=== PATIENT | female | born 1955 | race Caucasian/White ===

== ENCOUNTER 2023-04-14 13:09 | Outpatient (RCR) | payer MEDICARE, SELFPAY ==
--- NOTE | 2023-04-14 14:14 | PTOPEVAL1 ---
Assessment and note entered by Danny Carrillo Evaluation Information Assessment Status Evaluation Diagnosis right shoulder pain, right elbow pain Onset 02/25/23 Subjective Information Pt. reports that she fell on 02/25/23 after getting out of bed. She reports that her blood pressure bottomed out which caused her fall. She reports that her nephew helped her up. She reports that she did not immediately go to the hospital. She states that she has pain in the front of the right shoulder and down into the elbow. She notices that the elbow and shoulder get warm and painful. She reports that the pain in her shoulder makes it hard to get comfortable. She states that before falling on the right arm she could use the arm and reach overhead without complication. She reports that she cannot reach overhead currently. 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 She reports that she could never straighten the right elbow before her fall, but pain was not present. She states that she lives alone and was caring for herself with the exception of meal prep and getting into the shower. She has not been able to do her cleaning because of pain in the right arm. She is right hand dominant. She reports that she can compensate with the left arm. She states that combing her hair is difficult due to pain. She did have xray and doctor told her that her rotator cuff is not present. She reports that her goal is to decrease her right arm pain and be able to reach overhead again. Reported Pain Level Pain Score 8,7: Self Report Assessment PT Clinical Summary Pt. is a 67 year old female who enters the clinic with right shoulder and right elbow pain following a fall. She presents with right rotator cuff syndrom and indication of OA. She presents with impaired right u.e. strength, impaired right u.e. ROM, pain and functional decline. Continued skilled PT is indicated in order to improve pt. comfort and re-establish functional movement of the dominant right u.e. Plan of Care Interventions Electrical Stimulation,Hot Pack/Cold Pack,Manual Therapy,Neuro Re-education,Patient/Caregiver Education,Therapeutic Activities,Therapeutic Exercise PT Services Indicated Yes Treatment Frequency and 2x/we
--- NOTE | 2023-04-14 15:26 | OPREHPOC ---
Outpatient Therapy Plan of Care This is a Multidisciplinary Plan of Care that may contain components documented by all disciplines (PT, OT, and ST.) PT Problem 1 PT Problem #1 Knowledge Deficit PT Goal 1 Goal Pt. will be independent with a HEP focused on ROM sikhism at the right shoulder. Target Visit 2 PT Problem 2 PT Problem #2 Impaired Range of Motion PT Goal 1 Goal Pt. will demonstrate 120 degrees active right shoulder flexion to reach in overhead cabinets and improve ease with washing her hair. Target Visit 10 PT Problem 3 PT Problem #3 Pain PT Goal 1 Goal Pt. will reduce reports of pain in the right shoulder and elbow to 3/10 at worst Target Visit 10 PT Problem 4 PT Problem #4 Impaired Strength PT Goal 1 Goal Pt. will demonstrate 3/5 gross proximal right u.e. strength to improve overhead functional movements . Target Visit 10 PT Problem 5 PT Problem #5 Impaired Functional Mobil PT Goal 1 Goal Pt. will improve Quick DASH score to less than 30% limitation indicating improve functional mobility . Target Visit 10
--- NOTE | 2023-05-16 11:55 | OPREHPOC ---
Outpatient Therapy Plan of Care This is a Multidisciplinary Plan of Care that may contain components documented by all disciplines (PT, OT, and ST.) PT Problem 1 PT Problem #1 Knowledge Deficit PT Goal 1 Goal Pt. will be independent with a HEP focused on ROM sabianism at the right shoulder. Target Visit 2 Progress Met PT Problem 2 PT Problem #2 Impaired Range of Motion PT Goal 1 Goal Pt. will demonstrate 120 degrees active right shoulder flexion to reach in overhead cabinets and improve ease with washing her hair. Target Visit 10 Progress Not Met PT Problem 3 PT Problem #3 Pain PT Goal 1 Goal Pt. will reduce reports of pain in the right shoulder and elbow to 3/10 at worst Target Visit 10 Progress Not Met PT Problem 4 PT Problem #4 Impaired Strength PT Goal 1 Goal Pt. will demonstrate 3/5 gross proximal right u.e. strength to improve overhead functional movements . Target Visit 10 Progress Not Met PT Problem 5 PT Problem #5 Impaired Functional Mobil PT Goal 1 Goal Pt. will improve Quick DASH score to less than 30% limitation indicating improve functional mobility . Target Visit 10 Progress Not Met
--- NOTE | 2023-05-16 11:55 | PTOPDC ---
Assessment and note entered by Marilyn Hood DPT Evaluation Information Assessment Status Evaluation Diagnosis right shoulder pain, right elbow pain Onset 02/25/23 Subjective Information Patient reports her shoulder is about the same. She reports she has continued pain at the L shoulder. She reports she is supposed to be scheduled for a CT with contraction Reported Pain Level Pain Score 8,7: Self Report Pain Score 9,9: Self Report Assessment PT Clinical Summary Aileen Simon was seen for 10 visits fo skilled PT with limited progress towards goals. She did not meet any set goals during POC. She continues to have elevated pain levels. She will discharged at this time due to limited progress. Plan of Care PT Services Indicated No
== END 2023-05-16 13:39 | disposition home or self-care (01) ==
LOC: CHSPT 13:09
DX: M25.521 Pain in right elbow (principal); M25.511 Pain in right shoulder
CPT/HCPCS: 97014; 97110; 97161; 97530; G0283

== ENCOUNTER 2023-06-30 09:49 | Outpatient (RCR) | payer MEDICARE, SELFPAY ==
--- NOTE | 2023-06-30 11:01 | PTOPEVAL1 ---
Assessment and note entered by Danny Carrillo Evaluation Information Assessment Status Evaluation Diagnosis right shoulder pain Onset 02/25/23 Subjective Information Pt. reports she fell in February. She reports she has had worsening shoulder pain since the fall. She reports that her doctor informed her that she likely tore her rotator cuff. She reports that she has not had a CT scan yet, but if she does not improve with therapy, she will likely require reverse TSA on the right. She reports she is right hand dominant. She reports she enjoyed sewing prior to her fall, but cannot sew since her fall. She states that her sister in law has been helping her with showers and cooking. She reports that she no longer drives. She reports that she does participate in grocery shopping with use of a motorized cart. She reports that she cannot use the right arm for simple daily activites such as washing her hair. She reports that her main goal for therapy is to be able to sew. Reported Pain Level Pain Score 8: Self Report Assessment PT Clinical Summary Pt. is a 67 year old female who enters the clinic with right shoulder pain. Pt. presents with indication of severe arthritic changes at the right shoulder. She currently presents with impaired gross right u.e. strength, impaired u.e. dexterity, pain and functional decline. Continued skilled PT is indicated in order to improve right u.e. function to allow her to achieve her goal of improved strength and to return to sewing. Plan of Care Interventions Manual Therapy,Neuro Re-education,Patient/ Caregiver Educati,Therapeutic Activities, Therapeutic Exercise PT Services Indicated Yes Treatment Frequency and 2x/week x 10 visits Duration These treatments will address the objective and functional deficits as defined above. The patient will be advanced safely and appropriately in order for the patient to progress towards his/her prior level of function. Additional exercises will be introduced and as well as a comprehensive home exercise program upon discharge, if needed, ?to ensure carryover of functional gains achieved in the clinic. This treatment plan has been reviewed and agreement upon by the patient.
--- NOTE | 2023-06-30 11:01 | OPREHPOC ---
Outpatient Therapy Plan of Care This is a Multidisciplinary Plan of Care that may contain components documented by all disciplines (PT, OT, and ST.) PT Problem 1 PT Problem #1 Knowledge Deficit PT Goal 1 Goal Pt. will be independent with a HEP focusing on u.e . strength and mobility. Target Visit 2 PT Problem 2 PT Problem #2 Impaired Range of Motion PT Goal 1 Goal Pt. will demonstrate ability to fully extend the elbow in supine to 30 degrees from full extension with assistance holding shoulder at 90 degrees of flexion for 10 reps Target Visit 10 PT Problem 3 PT Problem #3 Impaired Strength PT Goal 1 Goal Pt. will demonstrate ability to flex the elbow to 120-130 degrees with 2-3# weight for 10 reps indicating improved strength Target Visit 10 PT Goal 2 Goal Pt. 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
[2023-07-10 09:00] VITALS: BP_SYST 85
--- NOTE | 2023-07-10 10:10 | OPREHPOC ---
Outpatient Therapy Plan of Care This is a Multidisciplinary Plan of Care that may contain components documented by all disciplines (PT, OT, and ST.) PT Problem 1 PT Problem #1 Knowledge Deficit PT Goal 1 Goal Pt. will be independent with a HEP focusing on u.e . strength and mobility. Target Visit 2 Progress Met PT Problem 2 PT Problem #2 Impaired Range of Motion PT Goal 1 Goal Pt. will demonstrate ability to fully extend the elbow in supine to 30 degrees from full extension with assistance holding shoulder at 90 degrees of flexion for 10 reps Target Visit 10 Progress Not Met PT Problem 3 PT Problem #3 Impaired Strength PT Goal 1 Goal Pt. will demonstrate ability to flex the elbow to 120-130 degrees with 2-3# weight for 10 reps indicating improved strength Target Visit 10 Progress Not Met PT Goal 2 Goal Pt. will improve master chef strength to 25# or greater in position 2 on the right to assist with improving ability to complete tasks such as sewing . Progress Not Met
--- NOTE | 2023-07-10 10:11 | PTOPDC ---
Assessment and note entered by Milagros Cesar, PT Evaluation Information Assessment Status Discharge Diagnosis R shoulder pain Onset 02/25/23 Subjective Information Aileen Simon reports her right shoulder continues to be painful at all times. She is not noting any change in pain or function since she re-initiated PT. She continues to have difficulty opening jars and is unable to wash her back independently, sew, or lift overhead. She is right hand dominant and has had to learn to do several things with her left arm. She feels she needs to have a CT scan and possibly surgery. She had PT at this clinic from 04/14/23-05/16/23 for the right shoulder as well and did not have any change in pain or function at that time either. She has now completed 7 weeks of skilled PT in the last 3 months which she reports her insurance requires her to have 6 weeks of PT in a 3 month period in order for a CT scan to be approved. Reported Pain Level Pain Score 8: Self Report Assessment PT Clinical Summary Aileen Simon has completed 4 skilled PT visits during her current POC for right shoulder pain. She also completed 10 skilled PT visits for the right shoulder between 04/14/23 and 05/16/23. She is reporting no change in her right shoulder pain or function with either round of PT. She has difficulty opening jars and is unable to wash her back independently, sew, or reach overhead. She objectively demonstrates a regression in right shoulder AROM, minimal to no change in right shoulder PROM, severe deficits in right shoulder and elbow strength, and decreased functional abilities. She is being referred back to her physician for further diagnostic testing due to lack of improvement. She was issued a home exercise program for ROM and strengthening to continue independently. Plan of Care PT Services Indicated No
== END 2023-07-10 10:17 | disposition home or self-care (01) ==
LOC: CHSPT 09:49
DX: M25.511 Pain in right shoulder (principal)
CPT/HCPCS: 97014; 97110; 97161; 97530; G0283